=== PATIENT | male | born 2000 | race Two or more races ===

== ENCOUNTER 2021-02-06 19:15 | Emergency (ER) | payer MEDICAID, OTHER ==
[~2021-02-06] VITALS: Ht 182.9 cm; Wt 117.9 kg
[2021-02-06] MEDS ORDERED: HYDROcodone-ACET 5/325MG TAB PO ONE (20:15)
[2021-02-06] MEDS ORDERED: TETANUS-DIPTH-ACEL PERTUSSIS 0.5ML SYR Tdap IM ONE (23:15)
[2021-02-06] MEDS ORDERED: LIDOCAINE 1% HCL (LOCAL ANESTH.) INJ 20ML MDV ID ONE (23:15)
[2021-02-06] MEDS ORDERED: IBUP600T27 PO (23:16)
[2021-02-06] MEDS ORDERED: DOXY-332 PO (23:16)
[2021-02-06] MEDS ORDERED: BACITRACIN TOP OINT 1 UD PKG TOP ONE (23:30)
[2021-02-07] MEDS ORDERED: DOXYCYCLINE 100 MG TAB/CAP PO ONE (00:15)
[2021-02-07] MEDS ORDERED: KETOROLAC TROMETH 30 MG/ML 1ML VIAL IV ONE (00:15)
[2021-02-07 00:41] VITALS: BP 145/97
[2021-02-07] MEDS ORDERED: LIDOCAINE 5% TOPICAL PATCH TOP ONE (02:15)
== END 2021-02-07 00:42 | disposition home or self-care (01) ==
LOC: ER 19:15 → EDBD 19:15 → ER 02-07 00:42
DX: S41.132A Puncture wound without foreign body of left upper arm, initial encounter (principal); Z79.1 Long term (current) use of non-steroidal anti-inflammatories (NSAID); Z79.2 Long term (current) use of antibiotics; Y04.2XXA Assault by strike against or bumped into by another person, initial encounter; Y93.89 Activity, other specified; Y92.89 Other specified places as the place of occurrence of the external cause; Y99.8 Other external cause status
CPT/HCPCS: 12001; 73060; 96374; 99283; J1885